=== PATIENT | female | born 1955 | race Caucasian/White ===

== ENCOUNTER 2019-09-30 11:29 | Emergency (ER) | payer OTHER ==
[~2019-09-30] VITALS: Ht 149.9 cm; Wt 57.7 kg
--- NOTE | 2019-09-30 11:49 | NUR ---
BIB [facility]. PT WAS HIKING WHEN SHE HAD A SUDDEN EPISODE OF DIZZINESS, WEAKNESS. PT SAT DOWN, LAID DOWN, AND "PASSED OUT". PER [facility], PT HAD AN EPISODE OF BIGEMINY. PT CURRENTLY AOX4. 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 MD AT BEDSIDE. WILL CONTINUE TO MONITOR PT.
[2019-09-30] MEDS ORDERED: SODIUM CHLORIDE 0.9% 1,000ML IVBOLUS ONE ×2 (12:00→12:30)
[2019-09-30] MEDS ORDERED: LORazepam 2 MG/ML, 1ML IVPush ONE (12:00)
[2019-09-30] MEDS ORDERED: SODIUM CHLORIDE FLUSH 10ML SYR IVF ONE (12:00)
[2019-09-30 12:12] LABS: BASOPHILS # (AUTO) 0.03 x10^3/uL (0-0.1); BASOPHILS % (AUTO) 0 % (0-1); EOSINOPHILS # (AUTO) 0.14 x10^3/uL (0-0.4); EOSINOPHILS % (AUTO) 2 % (1-7); LYMPHOCYTES # (AUTO) 1.71 x10^3/uL (1-3.4); LYMPHOCYTES % (AUTO) 22 % (22-44); MD NO; MEAN CORPUSCULAR HEMOGLOBIN 31.6 pg (27.0-34.8); MEAN CORPUSCULAR HGB CONC 33.3 g/dL (32.4-35.8); MEAN CORPUSCULAR VOLUME 94.9 fL (80-100); MEAN PLATELET VOLUME 8.7 fL (7.4-10.4); MONOCYTES % (AUTO) 5 % (2-9); NEUTROPHILS # (AUTO) 5.49 x10^3/uL (1.8-6.8); NEUTROPHILS % (AUTO) 71 % (42-75); PLATELET COUNT 235 x10^3/uL (130-400); RED BLOOD COUNT 4.74 x10^6/uL (3.82-5.3); RED CELL DISTRIBUTION WIDTH 13.6 % (9.6-15.2)
[2019-09-30] MEDS ORDERED: LORazepam 2 MG/ML, 1ML ONE (12:12)
[2019-09-30 12:18] LABS: ALBUMIN 3.5 g/dL (3.4-5.0); CHLORIDE 111 mmol/L (98-107)
[2019-09-30 12:27] LABS: ALANINE AMINOTRANSFERASE 19 U/L (12-78); ALKALINE PHOSPHATASE 93 U/L (45-117); ANION GAP 15 mmol/L (5-15); BILIRUBIN,TOTAL 0.5 mg/dL (0.2-1.0); CALCIUM 8.8 mg/dL (8.5-10.1); CREATININE 1.21 mg/dL (0.55-1.02); TOTAL PROTEIN 7.5 g/dL (6.4-8.2); TROPONIN I < 0.015 ng/mL (0.000-0.045)
[2019-09-30 13:11] LABS: MICROSCOPIC AUTO
[2019-09-30 15:49] VITALS: BP 124/79
--- NOTE | 2019-09-30 15:49 | NUR ---
PT FEELING BETTER. STATES THAT SHE DOES NOT WANT TO BE ADMITTED AND WOULD LIKE TO LEAVE AMA. MD AND MYSELF SPOKE WITH PT. PT STATES THAT SHE WILL FOLLOW UP WITH HER PCP AND THAT SHE DOES NOT WANT TO STAY. PT SIGNED AMA FORM, AMBULATORY, VS STABLE.
== END 2019-09-30 15:52 | disposition left against medical advice (07) ==
LOC: ED 13:07
DX: R55 Syncope and collapse (principal); R42 Dizziness and giddiness; E86.0 Dehydration; E87.2 Acidosis; I49.3 Ventricular premature depolarization
CPT/HCPCS: 36415; 71045; 80053; 81001; 83605; 84484; 85025; 87086; 93005; 96361; 96374; 99285; J2060; J7030

== ENCOUNTER 2019-12-01 06:40 | Outpatient (CLI) | payer OTHER | END 2019-12-01 23:59 | disposition home or self-care (01) | LOC: CFH 06:40 → EDSTATUS 07:00 → CFH 23:59 | PROVIDERS: ATTEND Internal Medicine Cardiovascular Disease | DX: I25.9 Chronic ischemic heart disease, unspecified (principal); R07.9 Chest pain, unspecified; R06.02 Shortness of breath | CPT/HCPCS: 78452; 93017; 93306; A9502 ==